=== PATIENT | female | born 1965 | race Caucasian/White ===

== ENCOUNTER 2016-11-20 09:04 | Day surgery (SDC) | payer OTHER ==
[~2016-11-20] VITALS: Ht 165.1 cm; Wt 125.0 kg
[~2016-11-20 09:04] MED LIST: CLARITIN10 M3 PO; FOLIC ACID1 MG PO; LO-DOSE ASPIRIN81 M2 PO; METHOTREXATE2.5 MG PO; PAMELOR25 MG PO; PRINIVIL10 MG PO; REMICADE10 MG/ML IV; ULTRAM50 MG PO
[2016-11-20 09:21] VITALS: BP 131/75
[2016-11-20 10:45] LABS: ANION GAP 7 MEQ/L (2-14); CHLORIDE 108 MEQ/L (99-109); SAMPLE HEMOLYSIS CHECK 0; SAMPLE ICTERIC CHECK 0; SAMPLE LIPEMIA CHECK 0; SODIUM 138 MEQ/L (136-147); TOTAL BILIRUBIN 0.6 MG/DL (0.0-1.0)
[2016-11-20 10:51] LABS: ALKALINE PHOSPHATASE 54 IU/L (3-129); GFR ESTIMATE (CALCULATED) > 59 mL/min/; GLUCOSE 91 mg/dL (70-99); UREA NITROGEN (BUN) 14 mg/dL (9-23)
[2016-11-20 11:16] LABS: QUANTITATIVE HCG < 4.0 MIU/ML
[2016-11-20] MEDS ORDERED: ULTRAM50 MG PO (13:52)
[2016-11-20 15:35] VITALS: BP 135/79
[2016-11-20 16:32] VITALS: BP 132/81
[2016-11-20 18:06] VITALS: BP 136/83
== END 2016-11-20 18:15 | disposition home or self-care (01) ==
LOC: SDC 09:04
PROVIDERS: Thoracic Surgery (Cardiothoracic Vascular Surgery)
DX: K42.0 Umbilical hernia with obstruction, without gangrene (principal); I10 Essential (primary) hypertension; M19.90 Unspecified osteoarthritis, unspecified site
CPT/HCPCS: 80053; 84702; 85730; 88302; 93005; C1781; J0330; J0690; J0696; J1100; J1170; J1885; J2250; J2405; J3010; J7050